=== PATIENT | female | born 1975 | race Caucasian/White ===

== ENCOUNTER 2018-08-06 05:11 | Day surgery (SDC) | payer OTHER ==
[2018-08-04 12:08] LABS: APPEARANCE,URINE CLEAR; BILIRUBIN,URINE NEGATIVE (NEGATIVE); COLOR,URINE YELLOW; GLUCOSE, URINE NEGATIVE (NEGATIVE); KETONES,URINE NEGATIVE (NEGATIVE); LEUKOCYTE ESTERASE,URINE NEGATIVE (NEGATIVE); NITRITE,URINE NEGATIVE (NEGATIVE); PROTEIN,URINE NEGATIVE (NEGATIVE); URINE SPECIFIC GRAVITY 1.014; UROBILINOGEN,URINE NEGATIVE mg/dL (<2.0)
--- NOTE | 2018-08-04 12:49 | RADIOLOGY REPORT (SQ) ---
EXAM DESCRIPTION: CHEST PA/LATERAL COMPLETED DATE/TIME: 08/04/2018 12:16 pm REASON FOR STUDY: PRE-OP COMPARISON: None. EXAM PARAMETERS: NUMBER OF VIEWS: two views TECHNIQUE: Digital Frontal and Lateral radiographic views of the chest acquired. RADIATION DOSE: NA LIMITATIONS: none FINDINGS: LUNGS AND PLEURA: No opacities, masses or pneumothorax. No pleural effusion. MEDIASTINUM AND HILAR STRUCTURES: No masses or contour abnormalities. HEART AND VASCULAR STRUCTURES: Heart normal size. No evidence for failure. BONES: No acute findings. HARDWARE: None in the chest. OTHER: No other significant finding. IMPRESSION: NO SIGNIFICANT RADIOGRAPHIC FINDING IN THE CHEST. TECHNICAL DOCUMENTATION: JOB ID: [id number] [email or web address]- All Rights Reserved Reading location - IP/workstation name: [email or web address]
[2018-08-04 13:21] LABS: HEMATOCRIT 37.3 % (36.0-47.0); HEMOGLOBIN 12.7 g/dL (12.0-15.5); MEAN CORPUSCULAR HEMOGLOBIN 29.6 pg (27.0-33.4); MEAN CORPUSCULAR HGB CONC 34.1 g/dL (32.0-36.0); MEAN CORPUSCULAR VOLUME 87 fl (80-97); PLATELET COUNT 281 10^3/uL (150-450); RED BLOOD COUNT 4.29 10^6/uL (3.72-5.28); RED CELL DISTRIBUTION WIDTH 13.7 % (11.5-14.0); WHITE BLOOD COUNT 8.7 10^3/uL (4.0-10.5)
[2018-08-04 13:52] LABS: ANION GAP 9 (5-19); BLOOD UREA NITROGEN 11 mg/dL (7-20); CALCIUM 9.2 mg/dL (8.4-10.2); CARBON DIOXIDE 28 mmol/L (22-30); CHLORIDE 102 mmol/L (98-107); GLUCOSE 77 mg/dL (75-110); POTASSIUM 4.4 mmol/L (3.6-5.0); SODIUM 139.3 mmol/L (137-145)
--- NOTE | 2018-08-04 16:57 | EKG REPORT ---
SEVERITY:- NORMAL ECG - SINUS RHYTHM : Confirmed by: Monae Concepcion 04-Aug-2018 16:56:14
[~2018-08-06 05:11] MED LIST: CEFAZOLIN 1 GM/D5W RTU 1 GM/50 ML RTUPB IV PRN; LACTATED RINGERS 1000 ML IV PRN; LIDOCAINE 0.5% INJ-PF (5 MG/ML) 50 ML SDV SUBCUT PRN
[2018-08-06] MEDS ORDERED: CEFAZOLIN 1 GM/D5W RTU 1 GM/50 ML RTUPB IV ONE (05:18)
[2018-08-06] MEDS ORDERED: FENTANYL CITRATE INJ/PF 250 MCG/5 ML AMPULE ONE (06:56)
[2018-08-06] MEDS ORDERED: PROPOFOL INJ 200 MG/20 ML VIAL IV ONE ×2 (06:57→07:17)
[2018-08-06] MEDS ORDERED: MIDAZOLAM 2 MG/2 ML INJ ONE (06:57)
[2018-08-06] MEDS ORDERED: HYDROMORPHONE HCL INJ/PF 2 MG/ML AMPULE ONE (06:57)
[2018-08-06] MEDS ORDERED: ACETAMINOPHEN 1,000 MG/100 ML RTUPB IV ONE (06:57)
[2018-08-06] MEDS ORDERED: LIDOCAINE 1%/EPINEPHRINE INJ 20 ML VIAL ONE (07:07)
[2018-08-06] MEDS ORDERED: MEPERIDINE HCL/PF INJ 25 MG/1 ML DISP.SYRIN IV PRN (07:50)
[2018-08-06] MEDS ORDERED: PROMETHAZINE HCL INJ 25 MG/1 ML VIAL IV PRN (07:50)
[2018-08-06] MEDS ORDERED: FENTANYL CITRATE INJ/PF 100 MCG/2 ML AMPUL IV PRN ×3 (07:50)
[2018-08-06] MEDS ORDERED: MORPHINE SULFATE 10 MG/ML INJ IV PRN (07:50)
[2018-08-06] MEDS ORDERED: DIPHENHYDRAMINE HCL 50 MG/ML VIAL IV PRN (07:50)
--- NOTE | 2018-08-06 09:21 | OPERATIVE REPORT E ---
Operative Report NAME: RAINER DOWNING : 1975 AGE: 43Y DATE OF SURGERY: 08/06/2018 ROOM: PREOPERATIVE DIAGNOSES: 1. Menorrhagia. 2. Fibroids. POSTOPERATIVE DIAGNOSES: 1. Menorrhagia. 2. Fibroids. PROCEDURE: Total vaginal hysterectomy and partial salpingectomy. SURGEON: MADELEINE HOWARD M.D. ANESTHESIA: Spinal and local paravaginal block. COMPLICATIONS: None. ESTIMATED BLOOD LOSS: 100 mL. FINDINGS: That of a uterus with small fibroids present. Normal tubes and ovaries were appreciated. Portions of the tube were excised that appeared to be inclusive of the Essure devices placed in the past. INDICATIONS FOR PROCEDURE: The patient has symptomatic bleeding unresponsive to usual outpatient management. She desired attempt at definitive therapy. The usual risks of bleeding, infection, anesthesia, damage to organs and tissues were discussed and the patient understood. PROCEDURE: The patient was taken to the operating room and placed in the modified lithotomy position after adequate anesthesia was ascertained. Surgical timeout was performed and antibiotics had been given. EUA was performed. Bladder was drained under sterile technique. Through a posterior colpotomy incision the posterior cul-de-sac was entered without difficulty. A weighted speculum was placed and the uterosacral ligaments were crossclamped, cut, suture ligated, and held. The cervix was circumscribed and the parametrial tissues had been cauterized using LigaSure device up to the level of the uterine vessels. The anterior cul-de-sac was entered without difficulty. The bladder was retracted at this point anteriorly throughout the entire case. Parametrial tissues were cauterized up to the level of the fallopian tubes and round ligaments. Therefore, the dissection included the area of the Essure devices and the uterus and cervix came out of the operative field. The upper pedicles were suture ligated, free tied, and held. Good hemostasis was noted. The upper pedicles were released. The paravaginal tissue area was infiltrated with about 8 mL of 1% lidocaine with epinephrine. The vagina was then closed with interrupted #1 chromic catgut in anterior to posterior fashion. The vagina was copiously irrigated. The patient was awakened in stable condition. She had a spinal per Anesthesia due to her request for *------* preservation. DICTATING PHYSICIAN: MADELEINE HOWARD M.D. [id number] PHY#: [id number] ID: [id number] JOB#: [id number] ACCT: [id number] cc:MADELEINE HOWARD M.D. >
[2018-08-06] MEDS ORDERED: PROMETHAZINE HCL INJ 25 MG/1 ML VIAL IM PRN (09:30)
[2018-08-06] MEDS ORDERED: MORPHINE INJ 6 MG DOSE (EDIT ROUTE) INJ PRN (09:30)
[2018-08-06] MEDS ORDERED: MORPHINE INJ 4 MG DOSE (EDIT ROUTE) INJ PRN (09:30)
[2018-08-06] MEDS ORDERED: MORPHINE INJ 8 MG DOSE IM PRN (10:00)
[2018-08-06] MEDS: CEFAZOLIN 1 GM RTU (EDIT START TIME) IV SCH ×2 (11:23→17:58)
[2018-08-06] MEDS ORDERED: DEXAMETHASONE SOD PHOSPHATE INJ 4 MG/1 ML VIAL ONE (11:31)
[2018-08-06] MEDS ORDERED: ONDANSETRON HCL INJ/PF 4 MG/2 ML SDV ONE (11:31)
[2018-08-06] MEDS ORDERED: PHENYLEPHRINE HCL INJ/PF 10 MG/1 ML SDV ONE (11:31)
[2018-08-06] MEDS: IBUPROFEN 800 MG TABLET PO SCH ×2 (13:23→21:12)
[2018-08-06] MEDS: OXYCODONE-ACETAMINOPHEN 5-325 MG TABLET PO PRN ×2 (15:35→19:51)
[2018-08-07] MEDS: OXYCODONE-ACETAMINOPHEN 5-325 MG TABLET PO PRN (00:41)
[2018-08-07] MEDS: IBUPROFEN 800 MG TABLET PO SCH (05:08)
[2018-08-07 07:00] LABS: HEMATOCRIT 34.3 % (36.0-47.0); HEMOGLOBIN 11.5 g/dL (12.0-15.5); MEAN CORPUSCULAR HEMOGLOBIN 29.1 pg (27.0-33.4); MEAN CORPUSCULAR HGB CONC 33.7 g/dL (32.0-36.0); MEAN CORPUSCULAR VOLUME 86 fl (80-97); PLATELET COUNT 232 10^3/uL (150-450); RED BLOOD COUNT 3.97 10^6/uL (3.72-5.28); RED CELL DISTRIBUTION WIDTH 13.5 % (11.5-14.0); WHITE BLOOD COUNT 12.4 10^3/uL (4.0-10.5)
[2018-08-07 08:35] VITALS: BP 127/79
== END 2018-08-07 09:44 | disposition home or self-care (01) ==
LOC: OROUT 05:11 → 2S 10:32 → OROUT 08-07 09:44
PROVIDERS: ATTEND Specialist
DX: N92.0 Excessive and frequent menstruation with regular cycle (principal); D25.9 Leiomyoma of uterus, unspecified; N72 Inflammatory disease of cervix uteri; R23.4 Changes in skin texture; A63.0 Anogenital (venereal) warts; Z79.899 Other long term (current) drug therapy; Z88.2 Allergy status to sulfonamides
CPT/HCPCS: 93010; 93005; 86900; 86901; 36415 ×2; 86850; 85027 ×2; 81025; 80048; 81001; 88307 ×2; 71046; 58262; J2250; J0690; J1100; J3010; J3490; J2270; J2370; J2405; J2704; J0131; 944; J1170